=== PATIENT | male | born 1970 | race Caucasian/White ===

== ENCOUNTER 2021-07-30 17:44 | Emergency (ER) | payer OTHER ==
[~2021-07-30] VITALS: Ht 182.9 cm; Wt 159.2 kg
[2021-07-30 17:45] VITALS: BP 112/106
== END 2021-07-30 17:52 ==
LOC: M.ERS 17:44
DX: I46.9 Cardiac arrest, cause unspecified (principal); Z20.822 Contact with and (suspected) exposure to COVID-19